=== PATIENT | female | born 1965 | race Hispanic/Latino ===

== ENCOUNTER 2022-06-03 12:47 | Inpatient (IN) | payer OTHER ==
[2022-06-03 13:54] LABS: Absolute Lymphocytes (CBC) 2.1 K/uL (0.7-4.9); Lymphocytes % 36.3 % (15.3-44.8); MCV 77.1 fL (80-100); MPV 8.9 fL (7.6-11.3); RBC Red Blood Cell Count 4.41 M/uL (3.86-4.86)
[2022-06-03 14:07] LABS: Potassium 3.8 mmol/L (3.5-5.1)
[2022-06-03] MEDS ORDERED: LIDOCAINE VISCOUS 2% SOLN 15 ML UDC ONE (15:16)
[2022-06-03] MEDS ORDERED: MAGNES/ALUMIN/SIMET 30ML UCUP ONE (15:17)
--- NOTE | 2022-06-03 15:44 | RAD REPORT ---
EXAM DESCRIPTION: Addie Single View06/03/2022 2:48 pm CLINICAL HISTORY: Chest pain COMPARISON: none FINDINGS: The lungs appear clear of acute infiltrate. The heart is normal size IMPRESSION: No acute abnormalities displayed
--- NOTE | 2022-06-03 16:20 | ER ---
Nurse's Notes [facility] Name: Tyesha Medellin Age: 56 yrs Sex: Female : 1965 Arrival Date: 06/03/2022 Time: 12:49 Bed 18 Private MD: Diagnosis: Chest pain, unspecified;Elevated troponin Presentation: 06/03 13:00 Chief complaint: Patient states: burning sensation in chest since Tuesday with NV, vg1 stated "weird tingling sensation" to Left arm, also stated "Nisa been belching a lot as well". Coronavirus screen: Vaccine status: Patient reports receiving the 2nd dose of the covid vaccine. Client denies travel out of the [place] in the last 14 days. Ebola Screen: Patient denies exposure to infectious person. Patient denies travel to an Ebola-affected area in the 21 days before illness onset. Initial Sepsis Screen: Does the patient meet any 2 criteria? No. Patient's initial sepsis screen is negative. Does the patient have a suspected source of infection? No. Patient's initial sepsis screen is negative. Risk Assessment: Do you want to hurt yourself or someone else? Patient reports no desire to harm self or others. Onset of symptoms was May 02, 2022. 13:00 Method Of Arrival: Ambulatory vg1 13:00 Acuity: SOTERO 3 vg1 Triage Assessment: 13:04 General: Appears comfortable, Behavior is calm, cooperative. Pain: Complains of pain in vg1 xiphoid area Pain currently is 5 out of 10 on a pain scale. Neuro: Level of Consciousness is awake, alert, obeys commands, Oriented to person, place, time, situation. Cardiovascular: Patient's skin is warm and dry. Respiratory:. Respiratory: Airway is patent Respiratory effort is even, unlabored. 13:06 GI: Reports nausea. vg1 Historical: - Allergies: 13:04 No Known Allergies; vg1 - Home Meds: 13:04 Cymbalta oral [Active]; vg1 - PMHx: 13:04 Fibromyalgia; vg1 - PSHx: 13:04 Hysterectomy; Cholecystectomy; Gastric sleeve; vg1 - Immunization history:: Client reports receiving the 2nd dose of the Covid vaccine. - Social history:: Smoking status: Patient denies any tobacco usage or history of. Screenin:18 Abuse screen: Denies threats or abuse. Nutritional screening: No deficits noted. bh1 Tuberculosis screening: No symptoms or risk factors identified. Fall Risk None identified. Assessment: 15:18 Reassessment: No changes from previously documented assessment. General: Appears in no bh1 apparent distress. Behavior is calm, cooperative, appropriate for age. Vital Signs: 13:00 BP 130 / 82; Pulse 92; Resp 16; Temp 97.8; Pulse Ox 100% ; Weight 72.57 kg; Height 4 vg1 ft. 11 in. (149.86 cm); Pain 5/10; 15:18 BP 148 / 71; Pulse 68; Resp 18; Pulse Ox 100% on R/A; bh1 15:51 BP 146 / 78; Pulse 71; Resp 20; Pulse Ox 100% on R/A; bh1 16:33 BP 142 / 84; Pulse 72; Resp 20; Pulse Ox 100% on R/A; bh1 18:02 BP 136 / 74; Pulse 76; Resp 18; Pulse Ox 100% on R/A; bh1 18:44 BP 159 / 89; Pulse 92; Resp 18; Pulse Ox 100% on R/A; bh1 13:00 Body Mass Index 32.32 (72.57 kg, 149.86 cm) vg1 ED Course: 12:49 Patient arrived in ED. rg4 12:56 Antony Miller DO is Attending Physician. ms3 13:04 Triage completed. vg1 13:04 Arm band placed on. vg1 13:39 Inserted saline lock: 20 gauge in right antecubital area, using aseptic technique. zm Blood collected. 13:39 Basic Metabolic Panel Sent. zm 13:39 CBC with Diff Sent. zm 13:39 Troponin HS Sent. zm 14:49 XRAY Chest (1 view) In Process Unspecified. EDMS 15:05 Fátima Devries, YUNIOR is Primary Nurse. bh1 15:18 No apparent distress. Resting quietly. Awaiting lab results, Awaiting radiology results.bh1 15:18 Patient has correct armband on for positive identification. monitor car operator on. Pulse bh1 ox on. NIBP on. 15:18 No provider procedures requiring assistance completed. bh1 15:51 No apparent distress. Resting quietly. Awaiting lab results, Awaiting radiology results.bh1 16:19 Paul Maynard MD is Hospitalizing Provider. ms3 16:34 No apparent distress. Resting quietly. Awaiting bed assignment, Awaiting lab results, [facility] Awaiting radiology results. 17:21 COVID-19 SARS RT PCR (Document "Date of Onset" if Symptomatic) Sent. [facility] 18:03 No apparent distress. Resting quietly. Awaiting bed assignment, Awaiting lab results, 1 Awaiting radiology results. 20:54 Patient admitted, IV remains in place. [facility] Administered Medications: 15:17 Drug: GI Cocktail without - (Maalox Suspension 30 ml, Lidocaine Liquid 2 % 15 bh1 ml) Route: PO; 15:17 Follow up: Response: No adverse reaction [facility] 16:23 Drug: Aspirin Chewable Tablet 324 mg Route: PO; [facility] 16:23 Follow up: Response: No adverse reaction [facility] Medication: 15:18 VIS not applicable for this client. [facility] Outcome: 16:20 Decision to Hospitalize by Provider. ms3 20:53 Admitted to Med/surg accompanied by tech, via wheelchair, with chart. [facility] 20:53 Condition: stable 20:53 Instructed on the need for admit. 20:54 Patient left the ED. [facility] Signatures: Dispatcher [employer] EDRanjana Joe 4 Nina Tavarez, RN RN 1 Antony Miller DO DO ms3 Verito Messer, RN RN sm5 Annel Ro Barbara, YUNIOR RN bh1
--- NOTE | 2022-06-03 16:20 | EDPHYS ---
Physician Documentation [facility] Name: Tyesha Medellin Age: 56 yrs Sex: Female : 1965 Arrival Date: 06/03/2022 Time: 12:49 Bed 18 Private MD: ED Physician Antony Miller HPI: 06/03 13:49 This 56 yrs old Female presents to ER via Ambulatory with complaints of GERD, ms3 Arm Pain. 13:50 The patient presents with abdominal pain in the epigastric area. Onset: The ms3 symptoms/episode began/occurred 2 day(s) ago. The symptoms radiate to chest. Associated signs and symptoms: Pertinent positives: nausea and vomiting. The symptoms are described as burning. Modifying factors: The symptoms are alleviated by nothing, the symptoms are aggravated by nothing. Severity of pain: At its worst the pain was moderate in the emergency department the pain is unchanged is a 6 / 10. Historical: - Allergies: 13:04 No Known Allergies; vg1 - Home Meds: 13:04 Cymbalta oral [Active]; vg1 - PMHx: 13:04 Fibromyalgia; vg1 - PSHx: 13:04 Hysterectomy; Cholecystectomy; Gastric sleeve; vg1 - Immunization history:: Client reports receiving the 2nd dose of the Covid vaccine. - Social history:: Smoking status: Patient denies any tobacco usage or history of. ROS: 13:50 Constitutional: Negative for fever, and chills. Neck: Negative for injury, pain, and ms3 swelling, Cardiovascular: Negative for chest pain, and palpitations. Respiratory: Negative for shortness of breath, cough, wheezing, and pleuritic chest pain. 13:50 MS/Extremity: Negative for injury and deformity, Skin: Negative for injury, rash, and discoloration, Neuro: Negative for headache, weakness, numbness, tingling. Psych: Negative for depression, anxiety, suicide ideation, homicidal ideation, and hallucinations. 13:50 Abdomen/GI: Positive for abdominal pain. 13:50 All other systems are negative. Exam: 13:49 ECG was reviewed by the Attending Physician. ms3 13:50 Constitutional: This is a well developed, well nourished patient who is awake, alert, ms3 and in no acute distress. Head/Face: Normocephalic, atraumatic. Neck: Trachea midline, no cervical lymphadenopathy. Supple, full range of motion without nuchal rigidity, or vertebral point tenderness. No Meningismus. Chest/axilla: Normal chest wall appearance and motion. Nontender with no deformity. Cardiovascular: Regular rate and rhythm with a normal S1 and S2. No gallops, murmurs, or rubs. Normal PMI, no JVD. No pulse deficits. Respiratory: Lungs have equal breath sounds bilaterally, clear to auscultation and percussion. No rales, rhonchi or wheezes noted. No increased work of breathing, no retractions or nasal flaring. 13:50 Skin: Warm, dry with normal turgor. Normal color with no rashes, no lesions, and no evidence of cellulitis. MS/ Extremity: Pulses equal, no cyanosis. Neurovascular intact. Full, normal range of motion. Psych: Awake, alert, with orientation to person, place and time. Behavior, mood, and affect are within normal limits. 13:50 Abdomen/GI: Inspection: abdomen appears normal, Bowel sounds: normal, Palpation: abdomen is soft and non-tender, in all quadrants. Vital Signs: 13:00 BP 130 / 82; Pulse 92; Resp 16; Temp 97.8; Pulse Ox 100% ; Weight 72.57 kg; Height 4 vg1 ft. 11 in. (149.86 cm); Pain 5/10; 15:18 BP 148 / 71; Pulse 68; Resp 18; Pulse Ox 100% on R/A; bh1 15:51 BP 146 / 78; Pulse 71; Resp 20; Pulse Ox 100% on R/A; bh1 16:33 BP 142 / 84; Pulse 72; Resp 20; Pulse Ox 100% on R/A; bh1 18:02 BP 136 / 74; Pulse 76; Resp 18; Pulse Ox 100% on R/A; bh1 18:44 BP 159 / 89; Pulse 92; Resp 18; Pulse Ox 100% on R/A; bh1 13:00 Body Mass Index 32.32 (72.57 kg, 149.86 cm) vg1 MDM: 13:50 Differential diagnosis: gastritis, gastroesophageal reflux disease, myocardia ischemia ms3 or infarction, non-specific abd pain. 15:25 Patient medically screened. ms3 16:21 Data reviewed: vital signs, nurses notes, lab test result(s), EKG, radiologic studies, ms3 and as a result, I will admit patient. Data interpreted: site monitor: rate is 71 beats/min, rhythm is normal sinus rhythm, regular, with no ectopy, Interpretation: normal rate, normal rhythm. Counseling: I had a detailed discussion with the patient and/or guardian regarding: the historical points, exam findings, and any diagnostic results supporting the discharge/admit diagnosis, lab results, radiology results, the need for further work-up and treatment in the hospital. ED course: Discussed case with Dr Maynard. He accepts patient as observation.. 06/03 13:10 Order name: Basic Metabolic Panel; Complete Time: 15:03 ms3 06/03 13:10 Order name: CBC with Diff; Complete Time: 15:03 ms3 06/03 13:10 Order name: Troponin HS; Complete Time: 15:03 ms3 06/03 17:12 Order name: COVID-19 SARS RT PCR (Document "Date of Onset" if Symptomatic) 06/03 17:22 Order name: CBC with Automated Diff EDCT 06/03 17:22 Order name: CBC with Automated Diff EDCT 06/03 13:10 Order name: XRAY Chest (1 view); Complete Time: 15:47 ms3 06/03 13:10 Order name: EKG; Complete Time: 13:10 ms3 06/03 17:22 Order name: Comprehensive Metabolic Panel EDCT 06/03 17:22 Order name: Comprehensive Metabolic Panel [facility] 06/03 17:22 Order name: Lipid Profile EDCT 06/03 19:29 Order name: Troponin High Sensitivity EDCT 06/03 13:10 Order name: Cardiac monitoring; Complete Time: 15:07 ms3 06/03 13:10 Order name: EKG - Nurse/Tech; Complete Time: 13:39 ms3 06/03 13:10 Order name: IV Saline Lock; Complete Time: 13:39 ms3 06/03 13:10 Order name: Labs collected and sent; Complete Time: 13:39 ms3 06/03 13:10 Order name: O2 Per Protocol; Complete Time: 15:07 ms3 06/03 13:10 Order name: O2 Sat Monitoring; Complete Time: 15:07 ms3 06/03 17:22 Order name: CONS Physician Consult EDCT 06/03 17:22 Order name: Regular EDMS 06/03 17:22 Order name: EKG Electrocardiogram EDMS EC:49 Rate is 73 beats/min. Rhythm is regular. QRS [place] is Normal. AK interval is normal. ms3 Clinical impression: NSR w/ Non-specific ST/T Changes. Interpreted by me. Reviewed by me. Administered Medications: 15:17 Drug: GI Cocktail without - (Maalox Suspension 30 ml, Lidocaine Liquid 2 % 15 bh1 ml) Route: PO; 15:17 Follow up: Response: No adverse reaction bh1 16:23 Drug: Aspirin Chewable Tablet 324 mg Route: PO; bh1 16:23 Follow up: Response: No adverse reaction bh1 Disposition Summary: 06/03/22 16:20 Hospitalization Ordered Hospitalization Status: Observation ms3 Provider: Paul Maynard ms3 Location: Telemetry/MedSurg (observation) ms3 Condition: Stable ms3 Problem: new ms3 Symptoms: are unchanged ms3 Bed/Room Type: Standard ms3 Room Assignment: 220(06/03/22 19:59) cg Diagnosis - Chest pain, unspecified ms3 - Elevated troponin ms3 Forms: - Medication Reconciliation Form ms3 - SBAR form ms3 Signatures: Dispatcher [employer] EDMS Torri Tavarez, RN Nina Woodard RN RN ana lilia1 Antony Miller DO DO ms3 Fátima Devries, RN RN bh1 Corrections: (The following items were deleted from the chart) 19:59 16:20 ms3 cg
[2022-06-03] MEDS ORDERED: ASPIRIN 81 MG CHEWABLE TABLET ONE (16:25)
[2022-06-03] MEDS ORDERED: ONDANSETRON 4 MG/2 ML VIAL IV PRN (17:17)
[2022-06-03] MEDS ORDERED: SODIUM CHLORIDE 0.9% 10ML INJ IV PRN (17:20)
[2022-06-03] MEDS ORDERED: MAGNES/ALUMIN/SIMET 30ML UCUP PO PRN (17:22)
--- NOTE | 2022-06-03 17:24 | P.HP ---
Certification for Inpatient Patient admitted to: Observation With expected LOS: <2 Midnights Patient will require the following post-hospital care: None Practitioner: I am a practitioner with admitting privileges, knowledge of patient current condition, hospital course, and medical plan of care. Services: Services provided to patient in accordance with Admission requirements found in Title 42 Section 412.3 of the Code of Federal Regulations Patient History Date of Service: 06/03/22 Reason for admission: Chest pain History of Present Illness: Patient is 56 years of age with a history of symptomatic reflux and takes a PPI on a daily basis started complaining of retrosternal chest pain since Tuesday that has been persistent not related to exertion she also experienced some discomfort and is in her left arm the pain is rather constant at 1 time it did radiate to the back currently she was given a GI cocktail and it resolved there is no risk factors for coronary artery disease diabetes or hypertension no previous history of exertional chest pain - Past Medical/Surgical History -: Fibromyalgia -: GERD -: Hysterectomy -: Cholecystectomy -: Gastric sleeve Review of Systems 10-point ROS is otherwise unremarkable Physical Examination - Physical Exam General: Alert, Oriented x3 HEENT: Atraumatic Neck: Supple Respiratory: Clear to auscultation bilaterally Cardiovascular: No edema, Regular rate/rhythm, Normal S1 S2 - Studies Laboratory Data (last 24 hrs) 06/03/22 13:36: WBC 5.9, Hgb 10.9 L, Hct 34.0 L, Plt Count 246 06/03/22 13:36: Sodium 139, Potassium 3.8, BUN 16, Creatinine 0.84, Glucose 102 Assessment and Plan - Problems (Diagnosis) (1) Chest pain Current Visit: Yes Status: Acute Plan: Patient is 56 years of age admitted with atypical chest pain retrosternal one- time it may have radiated to the left arm she had noticed some radiation to the back before this started on on Tuesday and has been persistent is seems to be no relation to exertion no other risk factors for coronary artery disease no his tory of diabetes hypertension does not smoke it is post cholecystectomy patient has a history of fibromyalgia troponins are slightly elevated plan to admit the patient EKG is normal we will admit for observation start on high-dose IV pantoprazole Maalox as needed serial troponins EKG possible discharge tomorrow patient is very low risk heart score is only 2 Qualifiers: Chest pain type: unspecified Qualified Code(s): R07.9 - Chest pain, unspecified Discharge Plan: Home Plan to discharge in: 24 Hours - Advance Directives Does patient have a Living Will: No Does patient have a Durable POA for Healthcare: No
[2022-06-03] MEDS: PANTOPRAZOLE 40 MG INJ IVP SCH (21:56)
[2022-06-04 05:07] LABS: Absolute Lymphocytes (CBC) 2.4 K/uL (0.7-4.9); Hematocrit 32.4 % (36.0-45.0); Lymphocytes % 44.1 % (15.3-44.8); MCV 77.2 fL (80-100); MPV 9.1 fL (7.6-11.3)
[2022-06-04 05:24] LABS: Albumin 3.1 g/dL (3.4-5.0); Bilirubin Total 0.5 mg/dL (0.2-1.0); Potassium 3.9 mmol/L (3.5-5.1)
[2022-06-04] MEDS: PANTOPRAZOLE 40 MG INJ IVP SCH ×2 (08:28→20:27)
[2022-06-04] MEDS: DULOXETINE 30 MG CAP PO SCH (09:11)
[2022-06-04] MEDS: MORPHINE 2 MG/ML SYR IV PRN ×2 (10:28→16:30)
[2022-06-04] MEDS: SUCRALFATE 1 GM TABLET PO SCH ×4 (11:31→20:28)
--- NOTE | 2022-06-04 15:25 | P.PN ---
Subjective Date of Service: 06/04/22 Chief Complaint: Chest pain Subjective: No new changes Physical Examination - Vital Signs Temperature: 97.3 F Blood Pressure: 188/86 Pulse: 73 Respirations: 16 Pulse Ox (%): 95 - Physical Exam General: Alert, Oriented x3 HEENT: Atraumatic, Normocephalic Neck: Supple Respiratory: Normal air movement Cardiovascular: Regular rate/rhythm, Normal S1 S2 Gastrointestinal: Soft and benign Musculoskeletal: No swelling Neurological: Normal speech Assessment And Plan - Plan Chest pain Reflux esophagitis Fibromyalgia Elevated troponin Plan: Patient continues to have symptoms of retrosternal chest discomfort and there is concern for worsening reflux severities. Will continue PPI therapy. Will have sucralfate for additional therapy. Symptomatic therapy for other possibilities of chest discomfort on board. Mildly elevated troponin noted, cardiology consulted for management recommendation. We will follow closely. Will monitor trend of troponin on labs. Prophylaxis: Lovenox for DVT prophylaxis.
--- NOTE | 2022-06-04 20:04 | CON ---
Date of Consultation: 06/04/2022 Reason For Consultation: Chest pain and borderline troponin elevation. History Of Present Illness: This is a 56-year-old female with a history of acid reflux, presented wi chest pain. She described it as heaviness and an elephant sitting on her chest that comes and goe s. This has been happening since and when the pain happens, it is very intense. She does n ot have any medical problems. However, family has significant history for coronary artery disease at early age of life. At the present time, she has no chest pain. Past Medical History: As outlined above in the HPI. Medications: Refer to reconciliation sheet for detailed list. Allergies: NO KNOWN DRUG ALLERGIES. Family History: No premature coronary artery disease or cancer. Social History: She does not smoke or drink. Does not use any drugs. Review of Systems: All systems reviewed and they were negative except as mentioned in the HPI. Physical Examination: Vital Signs: Temperature is 97.3, pulse 73, breathing at 16, blood pressure 188/86, saturating 95%. General: Pleasant young female in no apparent distress. Head and Neck: Pupils are equal, reactive to light. Intact eye movements. No JVD. No cervical barbara nopathy. Neck: Supple. Thyroid is not enlarged. Lungs: Clear to auscultation bilaterally. No rhonchi, wheezing, or crackles. No accessory muscle u se. HEART: Regular rate and rhythm. No extra sounds. Abdomen: Soft, nontender. Bowel sounds positive. No organomegaly. No masses or hernia. No rigidi ty or rebound. Extremities: No edema, clubbing, or cyanosis. Intact pulses. Skin: No rash. Neurologic: Alert, awake, oriented x3. No acute focal deficits appreciated. Investigations: Troponin was 71, then 75, third one is pending. LDL cholesterol is 225. Creatinine 0.7. Hemoglobin 7.6. Assessment And Plan: 1.Chest pain, highly suggestive of unstable angina with borderline troponin leak that makes it likel y to be an acute coronary syndrome. I recommend the following. Start baby aspirin 81 mg daily and a lso start her on Lovenox 1 mg/kg subcu q.12 hours. Monitor over the weekend and plan for coronary an giogram on Tuesday. We initially had a plan to do the heart catheterization on her today. However, s he had a full lunch, which could not take her to the [facility] processing lab[facility] safely and she was chest pain free. We will monitor her closely. If she becomes unstable, we will take her urgently to the shellfish processing laborer. Othe rwpete, start therapeutic Lovenox dosing and baby aspirin and place nitroglycerin patch on her chest 1 inch q.8 hours and continue oxygen therapy. 2.Hypertension, very uncontrolled blood pressure. Start home beta-daria please, metoprolol 25 mg twice a day and up titrate for a better blood pressure as long as the heart rate tolerates and using nitrates will help the blood pressure as well. 3.Familial hypercholesterolemia, very high LDL. Start her on Lipitor 80 mg at bedtime. SR/MODL Voice ID: [id number] Report ID: [id number]
[2022-06-04 21:07] VITALS: BMI 35.2
[2022-06-05] MEDS: DULOXETINE 30 MG CAP PO SCH (08:43)
[2022-06-05] MEDS: PANTOPRAZOLE 40 MG INJ IVP SCH (08:43)
[2022-06-05] MEDS: SUCRALFATE 1 GM TABLET PO SCH ×4 (08:43→20:19)
[2022-06-05] MEDS ORDERED: NITROGLYCERIN 0.4 MG/TAB SL PRN (09:50)
[2022-06-05] MEDS ORDERED: SODIUM CHLORIDE 0.9% 10ML INJ IV PRN (09:51)
--- NOTE | 2022-06-05 09:54 | P.PN ---
Subjective Date of Service: 06/05/22 Chief Complaint: Chest pain Patient still has intermittent chest pains morning she was okay around 950 she had another episode of chest pain Review of Systems 10-point ROS is otherwise unremarkable Physical Examination - Vital Signs Temperature: 97.4 F Blood Pressure: 124/67 Pulse: 68 Respirations: 16 Pulse Ox (%): 98 - Physical Exam General: Alert, In no apparent distress, Oriented x3 Neck: Supple Respiratory: Clear to auscultation bilaterally Cardiovascular: No edema, Regular rate/rhythm Assessment And Plan - Current Problems (Diagnosis) (1) Chest pain Current Visit: Yes Status: Acute Plan: Age 56 admitted with chest pain stable unstable angina seen by cardiology start on Lovenox aspirin low-dose metoprolol nitroglycerin repeat another EKG patient's vital signs are stable oxygenation satisfactory troponin has been declining no prior EKG changes also has hyperlipidemia start on low-dose statin scheduled for a cardiac cath on Tuesday Qualifiers: Chest pain type: unspecified Qualified Code(s): R07.9 - Chest pain, unspecified
[2022-06-05] MEDS: METOPROLOL XL 25 MG TAB PO SCH ×2 (10:39→20:19)
[2022-06-05] MEDS: ATORVASTATIN 10 MG TAB PO SCH ×2 (10:39→20:19)
[2022-06-05] MEDS: ASPIRIN EC 81 MG TAB PO SCH (10:40)
[2022-06-05] MEDS: ENOXAPARIN 80 MG/0.8 ML SQ SCH ×2 (10:40→20:20)
[2022-06-05] MEDS: HYDROMORPHONE HCL 2 MG/ML inj IV PRN ×2 (10:40→20:20)
--- NOTE | 2022-06-05 20:38 | PN ---
Date of Progress Note: 06/05/2022 Subjective: Seen by bedside. She had another episode of chest pain earlier this morning, responded to pain medications, and now she is pain free. Review of Systems: Denies having any shortness of breath, or cough, or nausea, vomiting, or diarrhea. All other systems reviewed are negative. Physical Examination: Vital Signs: Reviewed. Head and Neck: Pupils are equal, reactive to light. Intact eye movements. No JVD. No cervical lym phadenopathy. Neck is supple. Thyroid not enlarged. Lungs: Clear to auscultation bilaterally. No rhonchi, rales, or crackles. No accessory muscle use. Heart: Regular rate and rhythm. No extra sounds. Abdomen: Soft, nontender. Bowel sounds positive. No organomegaly. No masses or hernia. No rigidi ty or rebound. Extremities: No clubbing, cyanosis. Intact pulses. Skin: No rash. Neurologic: Alert, awake, oriented x3. No acute focal deficits appreciated. Investigations: Troponins down to 63. Creatinine 0.74. Hemoglobin is 10.6. Assessment And Recommendations: 1.Wtu-[id number] myocardial infarction, very typical and worrisome symptoms. Continue Lovenox and baby aspirin. Plan for coronary angiogram on Tuesday morning and continue beta daria. 2.Dyslipidemia. I will plan to increase the Lipitor to 80 mg at bedtime. 3.Hypertension. Blood pressure is controlled. SR/YURIL Voice ID: [id number] Report ID: [id number]
[2022-06-05] MEDS ORDERED: PANTOPRAZOLE 40 MG INJ IVP SCH (21:00)
[2022-06-05] MEDS: MELATONIN 5 MG TABLET PO PRN (23:41)
[2022-06-06] MEDS: ENOXAPARIN 80 MG/0.8 ML SQ SCH ×2 (09:00→20:46)
[2022-06-06] MEDS: METOPROLOL XL 25 MG TAB PO SCH ×2 (09:00→20:47)
--- NOTE | 2022-06-06 09:00 | P.PN ---
Subjective Date of Service: 06/06/22 Chief Complaint: Chest pain No further chest pain since yesterday morning no dysphagia no shortness of breath Review of Systems Unremarkable Physical Examination - Vital Signs Temperature: 97.1 F Blood Pressure: 98/53 Pulse: 52 Respirations: 18 Pulse Ox (%): 95 - Physical Exam General: Alert, Oriented x3 Respiratory: Clear to auscultation bilaterally Cardiovascular: No edema, Regular rate/rhythm Assessment And Plan - Current Problems (Diagnosis) (1) Chest pain Current Visit: Yes Status: Acute Plan: Chest pain has now resolved awaiting cardiac catheterization denies any dysphagia we will reorder some labs today changed to p.o. pantoprazole patient is fully anticoagulated her statins have been increased vital signs also stable no new complaints Qualifiers: Chest pain type: unspecified Qualified Code(s): R07.9 - Chest pain, unspecified
[2022-06-06] MEDS: ASPIRIN EC 81 MG TAB PO SCH (10:24)
[2022-06-06] MEDS: SUCRALFATE 1 GM TABLET PO SCH ×4 (10:24→20:44)
[2022-06-06] MEDS: DULOXETINE 30 MG CAP PO SCH (10:24)
[2022-06-06] MEDS: PANTOPRAZOLE 40MG TABLET PO SCH (16:49)
--- NOTE | 2022-06-06 20:29 | PN ---
Date of Progress Note: 06/06/2022 Subjective: Seen by bedside. Doing clinically well. Had another episode of chest pain that was mil d. Review of Systems: No chest pain at the present time. No shortness of breath. No fever, nausea, vomiting, diarrhea. N o dysuria, polyuria, or urinary urgency. All other systems reviewed and they are negative. Physical Examination: Vital Signs: Temperature is 97.4, pulse 58, breathing at 14, blood pressure 119/56, saturating 97% r oom air. General: Pleasant middle-aged female, in no apparent distress. Head and Neck: Pupils are equal, reactive to light. Intact eye movements. No JVD. No cervical lym phadenopathy. Neck is supple. Thyroid is not enlarged. Lungs: Clear to auscultation bilaterally. No rhonchi, wheezing, or crackles. No accessory muscle u se. Heart: Regular rate and rhythm. No extra sounds. Abdomen: Soft, nontender. Bowel sounds positive. No organomegaly. No masses or hernia. No rigidi ty or rebound. Extremities: No edema, clubbing, or cyanosis. Intact pulses. Skin: No rash. Neurologic: Alert, awake, oriented x3. No acute focal deficits appreciated. Investigations: No blood work was done on her today. Assessment And Recommendations: 1.Acute coronary syndrome. Has symptoms suggestive of unstable angina. Troponin leak is mildly jaquelin vated. Definitely, a coronary angiogram is warranted. N.p.o. past midnight and to hold heparin afte r the evening dose and plan for coronary angiogram tomorrow. Continue aspirin. 2.Familial hypercholesterolemia, significant elevation of her LDL. She is on atorvastatin 20 mg. I f she turns out to have coronary artery disease and tomorrow coronary angiogram, this dose should be 80 mg at bedtime. SR/MODL Voice ID: [id number] Report ID: [id number]
[2022-06-06] MEDS: MELATONIN 5 MG TABLET PO PRN (20:45)
[2022-06-06] MEDS: HYDROMORPHONE HCL 2 MG/ML inj IV PRN (20:47)
[2022-06-06] MEDS ORDERED: ATORVASTATIN 10 MG TAB PO SCH (21:00)
[2022-06-07] MEDS: PANTOPRAZOLE 40MG TABLET PO SCH ×2 (06:27→16:30)
[2022-06-07] MEDS: ASPIRIN EC 81 MG TAB PO SCH (06:27)
[2022-06-07] MEDS: SUCRALFATE 1 GM TABLET PO SCH ×2 (09:00→14:59)
[2022-06-07] MEDS: METOPROLOL XL 25 MG TAB PO SCH (09:00)
[2022-06-07] MEDS: ENOXAPARIN 80 MG/0.8 ML SQ SCH (09:00)
[2022-06-07] MEDS ORDERED: HEPA 1000U/500MLS 2,000 UNIT/1,000 ML BAG IV ONE (11:07)
[2022-06-07] MEDS ORDERED: LIDOCAINE 1% 20 ML MDV ONE (11:07)
[2022-06-07] MEDS ORDERED: FENTANYL CITR 100 MCG/2 ML ONE (11:23)
[2022-06-07] MEDS ORDERED: ATROPINE SULF 1 MG/10 ML SYR IV ONE (11:24)
[2022-06-07] MEDS ORDERED: HEPARIN 5000 UNIT/ML 1 ML VIAL ONE (11:24)
[2022-06-07] MEDS ORDERED: NITROGLYCERIN 100 MCG/ML SYR (for cath lab use only) IV ONE (11:24)
[2022-06-07] MEDS ORDERED: VERAPAMIL HCL 10 MG/4 ML VIAL IV ONE (11:24)
[2022-06-07] MEDS ORDERED: HEPARIN 10,000 UNIT/10 ML VIAL IV ONE (11:24)
[2022-06-07] MEDS ORDERED: MIDAZOLAM HCL 2 MG/2 ML INJ ONE (11:25)
[2022-06-07] MEDS ORDERED: NA CHLORIDE 0.9% 500 ML ONE (11:35)
--- NOTE | 2022-06-07 12:45 | OP ---
Date of Procedure: 06/07/2022 Surgeon: JOSE JUAN NUNEZ Procedures Performed: 1.Selective coronary angiogram. 2.Left heart catheterization. Indication: Non-ST elevation myocardial infarction. Access: Right radial artery 6-Gibraltarian closed with TR band. Complications: None. Bleeding: Less than 10 mL. Anesthesia: Total sedation time was 45 minutes, used fentanyl and Versed. Description Of Procedure: After risks, benefits, and alternatives were explained, the patient agreed to the procedure and signed informed consent. The patient was brought into the cardiac condition la boratory, prepped and draped in usual sterile fashion. Then, I accessed the right radial artery usin g pediatric micropuncture kit after giving fentanyl and Versed in incremental doses to achieve adequa te more sedation. Then, I took a 5-[place]arian [place] 4.0 catheter into the aortic root, engaged the left main, took standard views and then the right coronary artery, took standard views and then advanced t he catheter over the wire into the LV, took LVEDP and pullback, not recorded any gradient. Findings: 1.Left main; large, normal. 2.LAD, moderate-size vessel. The bifurcation of diagonal 1 branch has about 30% to 40% stenosis of the LAD, otherwise no significant disease. Diagonal branch is clean of disease. 3.Left circumflex; large and dominant and normal. 4.RCA; it is a moderate size, codominant with ostial 50% and mid 50% stenosis. 5.LVEDP elevated at 21 mmHg. Conclusion: 1.Moderate nonobstructive coronary artery disease. 2.Elevated LVEDP. Plan: Outpatient exercise nuclear stress test and echo and follow up as an outpatient. From cardiac standpoint, the patient can be released today. SR/MODL Voice ID: [id number] Report ID: [id number]
--- NOTE | 2022-06-07 13:51 | EKG ---
Test Date: 2022-06-05 Test Time: 10:00:25 Tufter Hand: HAILEY Lucas MEASUREMENT RESULTS: Intervals: Rate: 69 [place]: 152 QRSD: 94 QT: 422 QTc: 452 [place]: P: 11 [place]: 152 QRS: 7 T: 35 INTERPRETIVE STATEMENTS: Normal sinus rhythm Normal ECG Compared to ECG 06/04/2022 10:09:35 No significant changes Electronically Signed On 06-07-22 13:47:31 CDT by Austen Granado
--- NOTE | 2022-06-07 13:56 | EKG ---
Test Date: 2022-06-04 Test Time: 10:09:35 American History Professor: LASHA MEASUREMENT RESULTS: Intervals: Rate: 71 [place]: 150 QRSD: 80 QT: 416 QTc: 452 [place]: P: 27 [place]: 150 QRS: 20 T: 36 INTERPRETIVE STATEMENTS: Normal sinus rhythm Normal ECG Compared to ECG 06/04/2022 05:29:57 No significant changes Electronically Signed On 06-07-22 13:49:50 CDT by Austen Granado
--- NOTE | 2022-06-07 13:58 | EKG ---
Test Date: 2022-06-04 Test Time: 05:29:57 Air Director: RT MEASUREMENT RESULTS: Intervals: Rate: 63 [place]: 150 QRSD: 94 QT: 452 QTc: 462 [place]: P: 14 [place]: 150 QRS: 2 T: 20 INTERPRETIVE STATEMENTS: Normal sinus rhythm Normal ECG No previous ECG available for comparison Electronically Signed On 06-07-22 13:50:34 CDT by Austen Granado
--- NOTE | 2022-06-07 14:01 | EKG ---
Test Date: 2022-06-03 Test Time: 13:41:19 Reproductive Endocrinologist: TARYN MEASUREMENT RESULTS: Intervals: Rate: 73 [place]: 156 QRSD: 82 QT: 400 QTc: 440 [place]: P: 41 [place]: 156 QRS: 18 T: 32 INTERPRETIVE STATEMENTS: Normal sinus rhythm Possible Anterior infarct, age undetermined Abnormal ECG No previous ECG available for comparison Electronically Signed On 06-07-22 13:53:12 CDT by Austen Granado
[2022-06-07 14:35] VITALS: O2SAT 95
[2022-06-07] MEDS: DULOXETINE 30 MG CAP PO SCH (14:59)
--- NOTE | 2022-06-07 17:00 | P.DS ---
Admission Date: 06/04/22 Discharge Date: 06/07/22 Disposition: ROUTINE DISCHARGE Discharge Condition: FAIR Reason for Admission: Chest pain Consultations: Loy - Problems (1) Chest pain Current Visit: Yes Status: Acute Qualifiers: Chest pain type: unspecified Qualified Code(s): R07.9 - Chest pain, unspecified Brief History of Present Illness: Patient is 56 years of age with a history of symptomatic reflux and takes a PPI on a daily basis started complaining of retrosternal chest pain since Tuesday that has been persistent not related to exertion she also experienced some discomfort and is in her left arm the pain is rather constant at 1 time it did radiate to the back currently she was given a GI cocktail and it resolved there is no risk factors for coronary artery disease diabetes or hypertension no previous history of exertional chest pain Hospital Course: Patient is 56 years of age admitted with chest pain elevated troponin no history of risk factors for coronary artery disease cardiac cath shows moderate coronary artery disease no angioplasty or stents were performed patient did have hyperlipidemia and was started on atorvastatin follow-up with cardiology for outpatient stress test patient continued to have a severe persistent intermittent pain may have esophageal spasm use pantoprazole as an outpatient in addition to use peppermint oil possibility of esophageal spasm she does have reflux Vital Signs/Physical Exam: Temp Pulse Resp BP Pulse Ox 97.5 F 63 18 102/61 98 06/07/22 12:00 06/07/22 14:25 06/07/22 14:25 06/07/22 14:25 06/07/22 12:00 Laboratory Data at Discharge: WBC 5.5 K/uL (4.3-10.9) 06/04/22 04:34 Hgb 10.6 g/dL (12.0-15.0) L 06/04/22 04:34 Hct 32.4 % (36.0-45.0) L 06/04/22 04:34 Plt Count 220 K/uL (152-406) 06/04/22 04:34 Sodium 141 mmol/L (136-145) 06/04/22 04:34 Potassium 3.9 mmol/L (3.5-5.1) 06/04/22 04:34 BUN 14 mg/dL (7-18) 06/04/22 04:34 Creatinine 0.74 mg/dL (0.55-1.3) 06/04/22 04:34 Glucose 107 mg/dL (74-106) H 06/04/22 04:34 Total Bilirubin 0.5 mg/dL (0.2-1.0) 06/04/22 04:34 AST 26 U/L (15-37) 06/04/22 04:34 ALT 37 U/L (12-78) 06/04/22 04:34 Alkaline Phosphatase 119 U/L (45-117) H 06/04/22 04:34 Triglycerides 222 mg/dL (<150) H 06/04/22 04:34 Cholesterol 320 mg/dL (<200) H 06/04/22 04:34 HDL Cholesterol 51 mg/dL (40-60) 06/04/22 04:34 Cholesterol/HDL Ratio 6.27 06/04/22 04:34 Home Medications: Duloxetine HCl 60 mg PO DAILY 06/04/22 Duloxetine HCl [Cymbalta] 30 mg PO DAILY 06/04/22 Pantoprazole [Protonix Tab*] 40 mg PO DAILY 06/04/22 Atorvastatin Calcium [Lipitor*] 20 mg PO BEDTIME #30 tab 06/07/22 Nitroglycerin [Nitrostat] 0.4 mg SL Q4HP PRN #30 btl 06/07/22 New Medications: Atorvastatin Calcium [Lipitor*] 20 mg PO BEDTIME #30 tab Nitroglycerin [Nitrostat] 0.4 mg SL Q4HP PRN #30 btl PRN Reason: Pain Scale 5-7 (Moderate) Physician Discharge Instructions: Patient to pepermint oil for chest pains Diet: Regular Activity: Ad angelique Followup: Austen Granado MD [ACTIVE - CAN ADMIT] - (Call to schedule appointment)
[2022-06-07 17:41] VITALS: BP 125/71; TEMP 97.9
--- NOTE | 2022-06-07 19:00 | PN ---
Date of Progress Note: 06/07/2022 Subjective: Seen by bedside, doing clinically well, status post coronary angiogram. She has moderat e coronary artery disease that needs to follow up as an outpatient. Has no further chest pain. Review of Systems: No chest pain, shortness of breath, orthopnea, cough. No nausea, vomiting, diarrhea. All other syst ems reviewed are negative. Physical Examination: Vital Signs: Reviewed. Head and Neck: Pupils are equal, reactive to light. Intact eye movements. No JVD. No cervical lym phadenopathy. Neck is supple. Thyroid is not enlarged. Lungs: Clear to auscultation bilaterally. No rhonchi, wheezing, or crackles. No accessory muscle u se. Heart: Regular rate and rhythm. No extra sounds. Abdomen: Soft, nontender. Bowel sounds positive. No organomegaly. No masses or hernia. No rigidi ty or rebound. Extremities: No edema, clubbing, or cyanosis. Intact pulses. Skin: No rash. Neurologic: Alert, awake, oriented x3. No acute focal deficits appreciated. Lymph Nodes: No cervical or axillary lymphadenopathy. Investigations: Labs were reviewed. Assessment And Recommendations: 1.Coronary artery disease, moderate in severity in the LAD and the right coronary artery. From Card iology standpoint, this patient can be released on baby aspirin and high-dose statin, Lipitor 80 mg, and will follow up as an outpatient and obtain a followup as an outpatient, at which time, we will do a stress test to evaluate those moderate blockages that she has and we will obtain echocardiogram as an outpatient as well. 2.Familial hypercholesterolemia, on discharge to go home on Lipitor 80 mg at bedtime. SR/MODL Voice ID: [id number] Report ID: [id number]
--- OUTSIDE RECORDS SUMMARY | 2022-06-16 16:56 | XMS REPORT | Continuity of Care Document ---
:1965 Author Organization [facility] t Address [address] [place] [address] Care Team Providers Name Role Phone Sai Gómez DO Attending Clinician Joshua BROWN Attending Clinician Unavailable Joshua Brown MD Attending Clinician Doctor Unassigned, Name Attending Clinician Unavailable Kaity VENEGAS S Attending Clinician [facility] Attending Clinician Unavailable Payers Payer Name Policy Type Policy Number Effective Date Expiration Date S ource Problems Condition Condition Condition Status Onset Resolution Last Treating Co mments Source Name Details Category Date Date Treatment Clinician Date Suicidal Suicidal Disease Active Unive rs ideation ideation 1-08 ity of 00:00: [place] 00 Medical [place] Acute Acute Disease Active Univers respirator respirator 1-08 [place] hypoxia hypoxia Branch Altered Altered Disease Active Univers mental mental 1-07 ity of status status 00:00: [address] Allergies, Adverse Reactions, Alerts Allergy Allergy Status Severity Reaction(s) Onset Inactive Treating Comm ents Source Name Type Date Date Clinician NO KNOWN Drug Active Univers ALLERGIE Class ity of S [facility] Social History Social Habit Start Date Stop Date Quantity Comments Source Exposure to Not sure [place] of SARS-CoV-2 [facility] (event) Branch History of Snuff User [place] of tobacco use [facility] Tobacco use and 2020-11-18 2020-11-18 Current user Univers ity of exposure 00:00:00 00:00:00 [facility] Alcohol intake 2020-11-18 2020-11-18 Current drinker Unive rsity of 00:00:00 00:00:00 of alcohol [facility] (finding) [place] Sex Ass[birth year] At [birth year] Universit y of 00:00:00 00:00:00 [facility] Smoking Status Start Date Stop Date Source Never smoker [facility] Medications Ordered Filled Start Stop Current Ordering Indication Dosage Frequency Signature Comments Components Source Medication Medication Date Date Medication? Clinician (SIG) Name Name methylPREDN Yes Take by Un rina ISolone 4 1-19 mouth ity of mg tablets 00:00: [place] CTIONS. Medical follow Branch package directions methylPREDN Yes Take by Un rina ISolone 4 1-19 mouth ity of mg tablets 00:00: [place]STRU [place] CTIONS. Medical follow Branch package directions methylPREDN Yes Take by Un rina ISolone 4 1-19 mouth ity of mg tablets 00:00: [place]-INSTRU [place] CTIONS. Medical follow Branch package directions methylPREDN Yes Take by Un rina ISolone 4 1-19 mouth ity of mg tablets 00:00: [place]-INSTRU [place] CTIONS. Medical follow Branch package directions methylPREDN 2019-11 Yes [id number] 84mg Take 21 Univers ISolone 2-22 tablets by ity of (MEDROL, 00:00: mouth [place] OLEGARIO,) 4 mg 00 SEE-INSTRU Med ical tablets CTIONS. Branch follow package directions meloxicam 2019-11 Yes [id number] 7.5mg Take 1 U nivers 7.5 mg 2-22 tablet by ity of tablet 00:00: mouth [place] 00 daily. Medical Branch methylPREDN 2019-11 Yes [id number] 84mg Take 21 Univers ISolone 2-22 tablets by ity of (MEDROL, 00:00: mouth [place] OLEGARIO,) 4 mg 00 SEE-INSTRU Med ical tablets CTIONS. Branch follow package directions meloxicam 2019-11 Yes [id number] 7.5mg Take 1 U nivers 7.5 mg 2-22 tablet by ity of tablet 00:00: mouth [place] 00 daily. Medical Branch methylPREDN 2019-11 Yes [id number] 84mg Take 21 Univers ISolone 2-22 tablets by ity of (MEDROL, 00:00: mouth [place] OLEGARIO,) 4 mg 00 SEE-INSTRU Med ical tablets CTIONS. Branch follow package directions meloxicam 2019-11 Yes [id number] 7.5mg Take 1 U nivers 7.5 mg 2-22 tablet by ity of tablet 00:00: mouth [place] 00 daily. Medical Branch methylPREDN 2019-11 Yes [id number] 84mg Take 21 Univers ISolone 2-22 tablets by ity of (MEDROL, 00:00: mouth [place] OLEGARIO,) 4 mg 00 SEE-INSTRU Med ical tablets CTIONS. Branch follow package directions meloxicam 2019-11 Yes [id number] 7.5mg Take 1 U nivers 7.5 mg 2-22 tablet by ity of tablet 00:00: mouth [place] 00 daily. Medical Branch methylPREDN 2019-11 Yes [id number] 84mg Take 21 Univers ISolone 2-22 tablets by ity of (MEDROL, 00:00: mouth [place] OLEGARIO,) 4 mg 00 SEE-INSTRU Med ical tablets CTIONS. Branch follow package directions meloxicam 2019-11 Yes [id number] 7.5mg Take 1 U nivers 7.5 mg 2-22 tablet by ity of tablet 00:00: mouth [place] 00 daily. Medical Branch methylPREDN 2019-11 Yes [id number] 84mg Take 21 Univers ISolone 2-22 tablets by ity of (MEDROL, 00:00: mouth [place] OLEGARIO,) 4 mg 00 SEE-INSTRU Med ical tablets CTIONS. Branch follow package directions meloxicam 2019-11 Yes [id number] 7.5mg Take 1 U nivers 7.5 mg 2-22 tablet by ity of tablet 00:00: mouth [place] 00 daily. Medical Branch methylPREDN 2019-11 Yes [id number] 84mg Take 21 Univers ISolone 2-22 tablets by ity of (MEDROL, 00:00: mouth [place] OLEGARIO,) 4 mg 00 SEE-INSTRU Med ical tablets CTIONS. Branch follow package directions meloxicam 2019-11 Yes [id number] 7.5mg Take 1 U nivers 7.5 mg 2-22 tablet by ity of tablet 00:00: mouth [place] 00 daily. Medical Branch methylPREDN 2019-0 Yes [id number] 84mg Take 21 Univers ISolone 3-24 tablets by ity of (MEDROL, 00:00: mouth [place] OLEGARIO,) 4 mg 00 SEE-INSTRU Med ical tablets CTIONS. Branch follow package directions methylPREDN 2020-0 Yes [id number] 84mg Take 21 Univers ISolone 3-24 tablets by ity of (MEDROL, 00:00: mouth [place] OLEGARIO,) 4 mg 00 SEE-INSTRU Med ical tablets CTIONS. Branch follow package directions methylPREDN 2020-0 Yes [id number] 84mg Take 21 Univers ISolone 3-24 tablets by ity of (MEDROL, 00:00: mouth [place] OLEGARIO,) 4 mg 00 SEE-INSTRU Med ical tablets CTIONS. Branch follow package directions methylPREDN 2020-0 Yes [id number] 84mg Take 21 Univers ISolone 3-24 tablets by ity of (MEDROL, 00:00: mouth [place] OLEGARIO,) 4 mg 00 SEE-INSTRU Med ical tablets CTIONS. Branch follow package directions methylPREDN 2020-0 Yes [id number] 84mg Take 21 Univers ISolone 3-24 tablets by ity of (MEDROL, 00:00: mouth [place] OLEGARIO,) 4 mg 00 SEE-INSTRU Med ical tablets CTIONS. Branch follow package directions methylPREDN 2020-0 Yes [id number] 84mg Take 21 Univers ISolone 3-24 tablets by ity of (MEDROL, 00:00: mouth [place] OLEGARIO,) 4 mg 00 SEE-INSTRU Med ical tablets CTIONS. Branch follow package directions methylPREDN 2020-0 Yes [id number] 84mg Take 21 Univers ISolone 3-24 tablets by ity of (MEDROL, 00:00: mouth [place] OLEGARIO,) 4 mg 00 SEE-INSTRU Med ical tablets CTIONS. Branch follow package directions methylPREDN 2020-0 Yes [id number] 84mg Take 21 Univers ISolone 3-24 tablets by ity of (MEDROL, 00:00: mouth [place] OLEGARIO,) 4 mg 00 SEE-INSTRU Med ical tablets CTIONS. Branch follow package directions diclofenac 2020-0 2020- No [id number] 75mg Take 1 Univers 75 mg EC 3-24 04-24 tablet by ity o f tablet 00:00: 04:59 mouth 2 [place] 00 :00 (two) Medical times Branch daily with meals for 30 days. Tramadol 2018-0 Yes Take by Unive rs (RYBIX ODT) 2-25 mouth 2 ity o f 50 mg TbDL 19:07: (two) [place] 43 times Medical daily. Branch DULoxetine 2018-0 Yes 60mg Take 60 mg U nivers (CYMBALTA) 2-25 by mouth ity o f 60 mg 19:07: daily. [place] capsule 43 Medical Branch Tramadol 2018-0 Yes Take by Unive rs (RYBIX ODT) 2-25 mouth 2 ity o f 50 mg TbDL 19:07: (two) [place] 43 times Medical daily. Branch DULoxetine 2018-0 Yes 60mg Take 60 mg U nivers (CYMBALTA) 2-25 by mouth ity o f 60 mg 19:07: daily. [place] capsule 43 Medical Branch Tramadol 2017-0 Yes Take by Unive rs (RYBIX ODT) 2-25 mouth 2 ity o f 50 mg TbDL 19:07: (two) [place] 43 times Medical daily. Branch DULoxetine 2018-0 Yes 60mg Take 60 mg U nivers (CYMBALTA) 2-25 by mouth ity o f 60 mg 19:07: daily. [place] capsule 43 Medical Branch Tramadol 2017-0 Yes Take by Unive rs (RYBIX ODT) 2-25 mouth 2 ity o f 50 mg TbDL 19:07: (two) [place] 43 times Medical daily. Branch DULoxetine 2018-0 Yes 60mg Take 60 mg U nivers (CYMBALTA) 2-25 by mouth ity o f 60 mg 19:07: daily. [place] capsule 43 Medical Branch Tramadol 2017-0 Yes Take by Unive rs (RYBIX ODT) 2-25 mouth 2 ity o f 50 mg TbDL 19:07: (two) [place] 43 times Medical daily. Branch DULoxetine 2018-0 Yes 60mg Take 60 mg U nivers (CYMBALTA) 2-25 by mouth ity o f 60 mg 19:07: daily. [place] capsule 43 Medical Branch Tramadol 2018-0 Yes Take by Unive rs (RYBIX ODT) 2-25 mouth 2 ity o f 50 mg TbDL 19:07: (two) [place] 43 times Medical daily. Branch DULoxetine 2018-0 Yes 60mg Take 60 mg U nivers (CYMBALTA) 2-25 by mouth ity o f 60 mg 19:07: daily. [place] capsule 43 Medical Branch Tramadol 2018-0 Yes Take by Unive rs (RYBIX ODT) 2-25 mouth 2 ity o f 50 mg TbDL 19:07: (two) [place] 43 times Medical daily. Branch DULoxetine 2018-0 Yes 60mg Take 60 mg U nivers (CYMBALTA) 2-25 by mouth ity o f 60 mg 19:07: daily. [place] capsule 43 Medical Branch Tramadol 2018-0 Yes Take by Unive rs (RYBIX ODT) 2-25 mouth 2 ity o f 50 mg TbDL 19:07: (two) [place] 43 times Medical daily. Branch DULoxetine 2018-0 Yes 60mg Take 60 mg U nivers (CYMBALTA) 2-25 by mouth ity o f 60 mg 19:07: daily. [place] capsule 43 Medical Branch Tramadol 2018-0 Yes Take by Unive rs (RYBIX ODT) 2-25 mouth 2 ity o f 50 mg TbDL 19:07: (two) [place] 43 times Medical daily. Branch DULoxetine 2018-0 Yes 60mg Take 60 mg U nivers (CYMBALTA) 2-25 by mouth ity o f 60 mg 19:07: daily. [place] capsule 43 Medical Branch acetaminoph 2018-0 Yes [id number] 11/29 Univers en-codeine 2-25 tab Every ity of 300-30 mg 00:00: 4hrs as [place] tablet 00 needed for Medical pain or Branch cough requiring narcotic acetaminoph 2018-0 Yes [id number] 11/29 Univers en-codeine 2-25 tab Every ity of 300-30 mg 00:00: 4hrs as [place] tablet 00 needed for Medical pain or Branch cough requiring narcotic acetaminoph 2018-0 Yes [id number] 11/29 Univers en-codeine 2-25 tab Every ity of 300-30 mg 00:00: 4hrs as [place] tablet 00 needed for Medical pain or Branch cough requiring narcotic acetaminoph 2018-0 Yes [id number] 11/29 Univers en-codeine 2-25 tab Every ity of 300-30 mg 00:00: 4hrs as [place] tablet 00 needed for Medical pain or Branch cough requiring narcotic acetaminoph 2018-0 Yes [id number] 11/29 Univers en-codeine 2-25 tab Every ity of 300-30 mg 00:00: 4hrs as [place] tablet 00 needed for Medical pain or Branch cough requiring narcotic acetaminoph 2018-0 Yes [id number] 2 - 1 Univers en-codeine 2-25 tab Every ity of 300-30 mg 00:00: 4hrs as [place] tablet 00 needed for Medical pain or Branch cough requiring narcotic acetaminoph 2018-0 Yes [id number] 2 - 1 Univers en-codeine 2-25 tab Every ity of 300-30 mg 00:00: 4hrs as [place] tablet 00 needed for Medical pain or Branch cough requiring narcotic acetaminoph 2018-0 Yes [id number] 11/29 - Univers en-codeine 2-25 tab Every ity of 300-30 mg 00:00: 4hrs as [place] tablet 00 needed for Medical pain or Branch cough requiring narcotic acetaminoph 2018-0 Yes [id number] 11/29 - Univers en-codeine 2-25 tab Every ity of 300-30 mg 00:00: 4hrs as [place] tablet 00 needed for Medical pain or Branch cough requiring narcotic atorvastati 2010-11 Yes 20mg Take 1 Tab Univers n (LIPITOR) 0-28 by mouth ity of 20 mg 00:00: at [place] tablet 00 bedtime. Medical Branch atorvastati 2010-11 Yes 20mg Take 1 Tab Univers n (LIPITOR) 0-28 by mouth ity of 20 mg 00:00: at [place] tablet 00 bedtime. Medical Branch atorvastati 2010-11 Yes 20mg Take 1 Tab Univers n (LIPITOR) 0-28 by mouth ity of 20 mg 00:00: at [place] tablet 00 bedtime. Medical Branch atorvastati 2010-11 Yes 20mg Take 1 Tab Univers n (LIPITOR) 0-28 by mouth ity of 20 mg 00:00: at [place] tablet 00 bedtime. Medical Branch atorvastati 2010-11 Yes 20mg Take 1 Tab Univers n (LIPITOR) 0-28 by mouth ity of 20 mg 00:00: at [place] tablet 00 bedtime. Medical Branch atorvastati 2010-11 Yes 20mg Take 1 Tab Univers n (LIPITOR) 0-28 by mouth ity of 20 mg 00:00: at [place] tablet 00 bedtime. Medical Branch atorvastati 2010-11 Yes 20mg Take 1 Tab Univers n (LIPITOR) 0-28 by mouth ity of 20 mg 00:00: at [place] tablet 00 bedtime. Medical Branch atorvastati 2010-11 Yes 20mg Take 1 Tab Univers n (LIPITOR) 0-28 by mouth ity of 20 mg 00:00: at [place] tablet 00 bedtime. Medical Branch atorvastati 2010-11 Yes 20mg Take 1 Tab Univers n (LIPITOR) 0-28 by mouth ity of 20 mg 00:00: at [place] tablet 00 bedtime. [facility] Vital Signs Vital Name Observation Time Observation Value Comments Source Systolic blood 2020-11-18 16:13:00 119 [facility]Hg[facility] 2020-11[facility]18 16:13:00 80 [facility] 2020-11-18 16:13:00 75 /min [facility] Body height 2020-11-18 16:13:00 149.9 cm [facility] Body weight 2020-11-18 16:13:00 72.576 kg [facility] BMI 2020-11-18 16:13:00 32.32 kg/m2 [facility] Procedures Procedure Date / Time Performed Performing Clinician [facility] e REFERRAL- 2020-12-22 06:01:00 Doctor Unassigned, No [facility] REQUEST/RESPONSE Name [facility] XR KNEE <3 VW LEFT 2020-11-18 16:26:29 Ladi Pugh [facility] Encounters Start End Encounter Admission Attending Care Care Encounter Source Date/Time Date/Time Type Type Clinicians Facility Department ID 2021-02-10 2021-02-10 Patient Rico RUST [id number] Univers 00:00:00 00:00:00 Outreach Sai PRIMARY [id number] i ty of [facility] [id number] Victorino DICKENS [phone] Mn dical [facility] Branch 2021-01-28 2021-01-28 Outpatient [facility] [id number] Univers 18:40:00 18:40:[id number] 2020-12-30 2020-12-30 Outpatient Oksana BROWN [facility] [id number] Univers 13:00:00 13:00:00 GWYN [id number] ity of [facility] 2020-12-30 2020-12-30 Outpatient R GISSEL [facility] [id number] Univers 00:00:00 00:00:00 GWYN ity of [facility] 2020-12-22 2020-12-22 [facility] [id number] [id number] Univers 00:00:00 00:00:00 Gwyndominic [place] [id number] i [id number] [place] Profess[place] [phone] Me dical nal 198 [facility] 2020-12-22 2020-12-22 Orders Doctor TRU [id number] Univers 00:00:00 00:00:00 Only Unassigned, DYLAN [id number] ity of [facility] [id number] Rolando as [phone] [address] 2020-12-16 2020-12-16 [facility] [id number] [id number] Univers 00:00:00 00:00:00 Gwyn Lewis [facility] [id number] it y of Surgical [id number] [place] as Specialti [phone] Me dical es 198 [facility] 2020-11-18 2020-11-18 Hospital [facility] [id number] Univers 10:26:27 23:59:00 Encounter [facility] [id number] ity of Surgical [id number] [place] as Specialti [phone] Me dical es 809 [facility] 2020-11-18 2020-11-18 Office [facility] [id number] Univers 09:51:35 10:43:32 Visit [facility] [id number] it y of Surgical [id number] [place] as Specialti [phone] Me dical es 198 [facility] 2020-11-18 2020-11-18 Outpatient R KAITY [facility] [id number] Univers 10:30:00 10:30:00 LADI [id number] [facility] [place] 2020-11-18 2020-11-18 [facility] [id number] Univers 10:30:00 10:30:00 LADI [facility] [place] 2020-02-19 2020-02-19 [facility] [id number] Univers 11:00:00 11:00:00 LADI [id number] [facility] [place] 2020-02-19 2020-02-19 [facility] [id number] Univers 11:00:00 11:00:00 LADI [facility] [place] 2020-02-19 2020[facility]02-[facility] [id number] Univers 10:20:07 10:35:07 ne Visit [facility] [id number] i ty of Surgical [id number] [place] as Specialti [phone] Mn dical es 198 [facility] 2020-02-18 2020-02-18 [facility] 1.2.840.114 [id number] Univers 16:00:00 16:15:00 ne Visit [facility] [id number] i ty of Surgical [id number] [place] as Specialti [phone] Mn dical es 198 [facility] 2020-02-18 2020-02-18 [facility]patient [facility] [id number] Univers 16:00:00 16:00:00 LADI [id number] [facility] [place] 2020-02-18 2020-02-18 Outpatient [facility] [id number] Univers 16:00:00 16:00:00 LADI [facility] [place] Results This patient has no known results.
== END 2022-06-07 17:41 | disposition home or self-care (01) | DRG 287 ==
LOC: ER 12:47 → ERHOLD 17:18 → 2ND 20:21 → OBSVTOIN 06-04 20:07
PROVIDERS: ADMIT Internal Medicine Sleep Medicine; ATTEND Internal Medicine Sleep Medicine
PROC: B2011ZZ Plain Radiography of Multiple Coronary Arteries using Low Osmolar Contrast (ICD-10-PCS; principal; 2022-06-07)
PROC: 4A023N7 Measurement of Cardiac Sampling and Pressure, Left Heart, Percutaneous Approach (ICD-10-PCS; 2022-06-07)
DX: I25.110 Atherosclerotic heart disease of native coronary artery with unstable angina pectoris (principal); M79.7 Fibromyalgia; R77.8 Other specified abnormalities of plasma proteins; K21.00 Gastro-esophageal reflux disease with esophagitis, without bleeding; Z98.84 Bariatric surgery status; I10 Essential (primary) hypertension; E78.5 Hyperlipidemia, unspecified; K22.4 Dyskinesia of esophagus; Z20.822 Contact with and (suspected) exposure to COVID-19
CPT/HCPCS: 36415; 71045; 80048; 80053; 80061; 84484; 85025; 93005; 93458; 99285; C1893; C9113; G0378; J1170; J1644; J2250; J2270; J2405; J3010; J7040; Q9966; U0003

== ENCOUNTER 2024-01-24 08:54 | Day surgery (SDC) | payer OTHER ==
[2024-01-20 16:36] LABS: Absolute Lymphocytes (CBC) 2.9 K/uL (0.7-4.9); Hematocrit 34.3 % (36.0-45.0); MCV 77.6 fL (80-100); MPV 9.1 fL (7.6-11.3); Platelets 247 thou/uL (152-406); RBC Red Blood Cell Count 4.42 M/uL (3.86-4.86)
[2024-01-20 16:43] LABS: Protime INR 1.06
[2024-01-20 16:45] LABS: Potassium 3.8 mEq/L (3.5-5.1)
--- NOTE | 2024-01-21 01:00 | RAD REPORT ---
EXAM DESCRIPTION: RAD - Chest Pa And Lat (2 Views) - 01/20/2024 4:34 pm CLINICAL HISTORY: pre procedure, hypertension COMPARISON: Chest Single View dated 06/03/2022 TECHNIQUE: PA and lateral views of the chest were obtained. FINDINGS: The lungs are clear. Heart size is normal and central vasculature is within normal limits. No pleural effusion or pneumothorax seen. No acute bony finding noted. IMPRESSION: No acute cardiopulmonary process.
[2024-01-24] MEDS ORDERED: HEPA 1000U/500MLS 2,000 UNIT/1,000 ML BAG IV ONE (09:02)
[2024-01-24] MEDS ORDERED: MIDAZOLAM HCL 2 MG/2 ML INJ ONE ×2 (09:02→11:06)
[2024-01-24] MEDS ORDERED: VERAPAMIL HCL 10 MG/4 ML VIAL IV ONE (09:02)
[2024-01-24] MEDS ORDERED: FENTANYL CITR 100 MCG/2 ML ONE (09:02)
[2024-01-24] MEDS ORDERED: CLOPIDOGREL 75 MG TABLET ONE (09:03)
[2024-01-24] MEDS ORDERED: ATROPINE SULF 1 MG/10 ML SYR IV ONE (09:03)
[2024-01-24] MEDS ORDERED: HEPARIN 5000 UNIT/ML 1 ML VIAL ONE (09:03)
[2024-01-24] MEDS ORDERED: TICAGRELOR 90 MG TABLET PO ONE (09:03)
[2024-01-24] MEDS ORDERED: HEPARIN 10,000 UNIT/10 ML VIAL IV ONE (09:03)
[2024-01-24] MEDS ORDERED: ASPIRIN 325 MG TAB ONE (09:04)
[2024-01-24] MEDS ORDERED: LIDOCAINE 1% 20 ML MDV ONE (09:04)
[2024-01-24] MEDS: NA CHLORIDE 0.9% 500 ML ONE (11:55)
[2024-01-24 12:58] VITALS: TEMP 97.4
[2024-01-24 17:39] VITALS: O2SAT 97
[2024-01-24 19:05] VITALS: BP 120/76
== END 2024-01-24 18:45 | disposition home or self-care (01) ==
LOC: CCL 08:54
PROVIDERS: ATTEND Internal Medicine Interventional Cardiology
DX: I25.118 Atherosclerotic heart disease of native coronary artery with other forms of angina pectoris (principal); Q24.5 Malformation of coronary vessels; E78.2 Mixed hyperlipidemia; Z79.899 Other long term (current) drug therapy
CPT/HCPCS: 85025; 80048; 36415; 85610; 85347 ×2; 85730; 71046; 92928; 93458; 76937; C1893; Q9966; C1725; J1644; J2001; J2250 ×2; J3010; J7040; 99152; 99153; J0461